=== PATIENT | female | born 1970 | race African-American/Black ===

== ENCOUNTER 2018-09-21 11:20 | Outpatient (CLI) | payer OTHER ==
--- NOTE | 2018-09-21 13:13 | MMO ---
Bilateral MAMMO Bilat Screen [facility]. CLINICAL HISTORY: Patient is 48 years old and is seen for screening. The patient has no family history of breast cancer. The patient has no personal history of cancer. The patient has a history of bilateral Breast reduction in 1992 - benign. VIEWS: The views performed were: bilateral craniocaudal with tomosynthesis and bilateral mediolateral oblique with tomosynthesis. FILMS COMPARED: The present examination has been compared to prior imaging studies performed at [facility] on 03/14/2014, 05/23/2015 and 05/26/2016. MAMMOGRAM FINDINGS: There are scattered fibroglandular densities. There are stable benign appearing calcifications seen in both breasts. There are no suspicious masses, suspicious calcifications, or new areas of architectural distortion. IMPRESSION: THERE IS NO MAMMOGRAPHIC EVIDENCE OF MALIGNANCY. A ROUTINE FOLLOW-UP MAMMOGRAM IN 1 YEAR IS RECOMMENDED. THE RESULTS OF THIS EXAM WERE SENT TO THE PATIENT. ACR BI-RADS Category 2 - Benign finding MAMMOGRAPHY NOTE: 1. A negative mammogram report should not delay a biopsy if a dominant of clinically suspicious mass is present. 2. Approximately 10% to 15% of breast cancers are not detected by mammography. 3. Adenosis and dense breasts may obscure an underlying neoplasm.
== END 2018-09-21 11:21 | disposition home or self-care (01) ==
LOC: BICMAMMO 11:20
PROVIDERS: ATTEND Psychiatry & Neurology Neurology with Special Qualifications in Child Neurology
DX: Z12.31 Encounter for screening mammogram for malignant neoplasm of breast (principal); Z98.890 Other specified postprocedural states
CPT/HCPCS: 77063; 77067

== ENCOUNTER 2020-02-27 12:50 | Outpatient (CLI) | payer BC ==
--- NOTE | 2020-02-27 13:26 | MMO ---
Bilateral MAMMO Bilat Screen [facility]. CLINICAL HISTORY: Patient is 50 years old and is seen for screening. The patient has no family history of breast cancer. The patient has no personal history of cancer. The patient has a history of bilateral Breast reduction in 1992 - benign. VIEWS: The views performed were: bilateral craniocaudal with tomosynthesis and bilateral mediolateral oblique with tomosynthesis. FILMS COMPARED: The present examination has been compared to prior imaging studies performed at [facility] on 03/14/2014, 05/23/2015, 05/26/2016 and 09/21/2018. This study has been interpreted with the assistance of computer-aided detection. MAMMOGRAM FINDINGS: There are scattered fibroglandular densities. Finding 1: There are stable benign appearing calcifications seen in both breasts. Finding 2: There is a mass measuring 8 millimeters with indistinct margins seen in the anterior region of the right breast at 9 o'clock. IMPRESSION: FINDING 1: STABLE CALCIFICATIONS IN BOTH BREASTS ARE BENIGN. FINDING 2: MASS IN THE RIGHT BREAST REQUIRES ADDITIONAL EVALUATION. ADDITIONAL PROJECTIONS (RIGHT CRANIOCAUDAL SPOT COMPRESSION; RIGHT MEDIOLATERAL OBLIQUE SPOT COMPRESSION; AND RIGHT MEDIOLATERAL) ARE RECOMMENDED. AN ULTRASOUND EXAM IS RECOMMENDED. ADDITIONAL IMAGING. THE RESULTS OF THIS EXAM WERE SENT TO THE PATIENT. ACR BI-RADS Category 0 - Incomplete: Need additional imaging evaluation. [facility] will notify the patient of the need for additional imaging services. MAMMOGRAPHY NOTE: 1. A negative mammogram report should not delay a biopsy if a dominant of clinically suspicious mass is present. 2. Approximately 10% to 15% of breast cancers are not detected by mammography. 3. Adenosis and dense breasts may obscure an underlying neoplasm. Reported by: REFUGIO TYLER MD Electonically Signed: [id number]
== END 2020-02-27 12:51 | disposition home or self-care (01) ==
LOC: BICMAMMO 12:50
PROVIDERS: ATTEND Internal Medicine
DX: Z12.31 Encounter for screening mammogram for malignant neoplasm of breast (principal); R92.1 Mammographic calcification found on diagnostic imaging of breast; N63.13 Unspecified lump in the right breast, lower outer quadrant; Z98.890 Other specified postprocedural states
CPT/HCPCS: 77063; 77067

== ENCOUNTER 2020-03-08 08:55 | Outpatient (CLI) | payer BC ==
--- NOTE | 2020-03-08 09:28 | ULT ---
EXAM: US Breast Limited Rt PROVIDED CLINICAL HISTORY: Abnormal mammogram COMPARISON: Concurrently performed diagnostic mammogram FINDINGS: Limited sonographic interrogation was performed the right breast at the 8:00 position in the region o f mammographic concern. There is an irregularly marginated, angular, taller than wide hypoechoic mass measuring approximately 9 mm in greatest dimension at the 8:00 position of the right breast. Scott ited sonographic interrogation of the right axilla demonstrates no lymph node enlargement. IMPRESSION: 9 mm suspicious right breast mass, for which ultrasound-guided biopsy is recommended. Results and rec ommendations discussed with the patient and questions answered. BI-RADS 4 -- suspicious abnormality, biopsy recommended
--- NOTE | 2020-03-08 09:31 | MMO ---
Right Breast MAMMO Unilat Diag [facility]. CLINICAL HISTORY: Patient is 50 years old and is seen for diagnostic exam. The patient has no family history of breast cancer. The patient has no personal history of cancer. The patient has a history of bilateral Breast reduction in 1992 - benign. VIEWS: The views performed were: right craniocaudal spot compression with tomosynthesis; right mediolateral oblique spot compression with tomosynthesis; and right mediolateral with tomosynthesis. FILMS COMPARED: The present examination has been compared to prior imaging studies performed at [facility] on 05/26/2016, 09/21/2018, 02/27/2020 and 03/08/2020. This study has been interpreted with the assistance of computer-aided detection. MAMMOGRAM FINDINGS: There are scattered fibroglandular densities. There is a high density, irregular mass measuring 10 millimeters seen in the right breast at 8 o'clock. Sonography of this region demonstrates an irregular hypoechoic mass. IMPRESSION: MASS IN THE RIGHT BREAST IS SUSPICIOUS. BIOPSY IS RECOMMENDED. RESULTS AND RECOMMENDATIONS DISCUSSED WITH THE PATIENT AND REFERRING CLINICIAN. THE RESULTS OF THIS EXAM WERE SENT TO THE PATIENT. ACR BI-RADS Category 4 - Suspicious abnormality - biopsy should be considered MAMMOGRAPHY NOTE: 1. A negative mammogram report should not delay a biopsy if a dominant of clinically suspicious mass is present. 2. Approximately 10% to 15% of breast cancers are not detected by mammography. 3. Adenosis and dense breasts may obscure an underlying neoplasm. Reported by: TALISHA BARTON MD Electonically Signed: [id number]
== END 2020-03-08 08:56 | disposition home or self-care (01) ==
LOC: BICMAMMO 08:55
PROVIDERS: ATTEND Internal Medicine
DX: N63.13 Unspecified lump in the right breast, lower outer quadrant (principal)
CPT/HCPCS: G0279